=== PATIENT | female | born 1970 | race Caucasian/White ===

== ENCOUNTER 2016-07-28 08:26 | Emergency (ER) | payer MEDICAID, OTHER ==
[~2016-07-28] VITALS: Ht 149.9 cm; Wt 68.0 kg
[2016-07-28 08:35] VITALS: BP 123/68
[2016-07-28] MEDS ORDERED: LISI-660 PO (08:46)
[2016-07-28] MEDS ORDERED: ACETAMINOPHEN 325 MG TABLET PO ONE (09:15)
[2016-07-28] MEDS ORDERED: DEXAMETHASONE SOD PHOS 4 MG/ML 5 ML VIAL IM ONE (10:30)
== END 2016-07-28 11:15 | disposition home or self-care (01) ==
LOC: EMS 08:29
DX: J02.9 Acute pharyngitis, unspecified (principal); I10 Essential (primary) hypertension
CPT/HCPCS: 87430; 96372; 99283; J1100

== ENCOUNTER 2020-04-11 13:23 | Emergency (ER) | payer OTHER ==
[~2020-04-11] VITALS: Ht 149.9 cm; Wt 74.1 kg
[~2020-04-11 13:23] MED LIST: LISI-892 PO
[2020-04-11 14:44] LABS: APPEARANCE,URINE CLOUDY (CLEAR); BILIRUBIN,URINE NEGATIVE (NEGATIVE); GLUCOSE, URINE (UA) 100 mg/dL (NEGATIVE); KETONES,URINE NEGATIVE (NEGATIVE); LEUKOCYTE ESTERASE ,URINE SMALL (NEGATIVE); NITRATE,URINE NEGATIVE (NEGATIVE); OCCULT BLOOD,URINE LARGE (NEGATIVE); PROTEIN,URINE TRACE (NEGATIVE); UROBILINOGEN,URINE 0.2 mg/dL (<=1.0)
[2020-04-11 14:45] LABS: RBC,URINE 51-100 /HPF (0-2)
[2020-04-11 14:46] LABS: BACTERIA,URINE Moderate /HPF (None Seen); SQUAMOUS EPITHELIAL CELL,UR Moderate /LPF (None Seen)
[2020-04-11 15:19] LABS: BASOPHILS % (AUTO) 0.3 % (0.0-2.0); EOSINOPHILS % (AUTO) 0.6 % (1.0-6.0); HEMATOCRIT 41.4 % (36-46); LYMPHOCYTES # (AUTO) 0.9 K/uL (1.0-4.8); LYMPHOCYTES % (AUTO) 12.1 % (22.0-44.0); MEAN CORPUSCULAR HEMOGLOBIN 31.5 pg (26.0-34.0); MEAN CORPUSCULAR HGB CONC 33.9 G/dL (31.0-37.0); MEAN CORPUSCULAR VOLUME 93 fL (80-100); MONOCYTES # (AUTO) 0.4 K/uL (0.1-1.0); MONOCYTES % (AUTO) 5.9 % (2.0-9.0); NEUTROPHILS # (AUTO) 6.1 K/uL (1.8-7.7); NEUTROPHILS % (AUTO) 81.1 % (40.0-70.0); PLATELET COUNT (AUTO) 179 K/uL (150-450); RED BLOOD CELL COUNT(AUTO) 4.46 MIL/uL (4.00-5.20); RED CELL DISTRIBUTION WIDTH 12.6 % (11.5-14.5)
[2020-04-11 15:25] LABS: CALCIUM, TOTAL 9.4 mg/dL (8.8-10.5); CREATININE 1.05 mg/dL (0.60-1.30); POTASSIUM 3.6 mmol/L (3.5-5.1)
[2020-04-11 15:31] LABS: ALBUMIN 3.8 g/dL (3.4-5.0); BILIRUBIN,TOTAL 0.3 mg/dL (0.1-1.0); TOTAL PROTEIN, SERUM 7.6 g/dL (6.4-8.2)
[2020-04-11] MEDS ORDERED: KETOROLAC TROMETHAMINE 30 MG/ML VIAL IVP ONE (17:00)
[2020-04-11] MEDS ORDERED: SULFAMETHOX/TRIMETH DS 800-160 MG/TABLET PO ONE (17:00)
[2020-04-11] MEDS ORDERED: TAMSULOSIN HCL 0.4 MG CAPSULE PO ONE (17:00)
[2020-04-11] MEDS ORDERED: PHENAZOPYRIDINE HCL 100 MG TABLET PO ONE (17:00)
[2020-04-11] MEDS ORDERED: SODIUM CHLORIDE 0.9% 1,000 ML IV ONE (17:00)
[2020-04-11 18:16] VITALS: BP 129/76
== END 2020-04-11 18:57 | disposition home or self-care (01) ==
LOC: EMS 13:23
DX: N20.1 Calculus of ureter (principal); I10 Essential (primary) hypertension; Z79.899 Other long term (current) drug therapy
CPT/HCPCS: 36415; 74176; 80053; 81001; 84702; 85025; 87077; 87086; 96361; 96374; 99284; J1885; J7030

== ENCOUNTER 2020-04-13 19:40 | Emergency (ER) | payer OTHER ==
[~2020-04-13] VITALS: Ht 149.9 cm; Wt 75.0 kg
[2020-04-13] MEDS ORDERED: ONDANSETRON HCL 4 MG/2 ML VIAL IVP ONE (20:00)
[2020-04-13] MEDS ORDERED: SODIUM CHLORIDE 0.9% 1,000 ML IV ONE ×2 (20:00→21:00)
[2020-04-13] MEDS ORDERED: ACETAMINOPHEN 325 MG TABLET PO ONE (20:00)
[2020-04-13] MEDS ORDERED: KETOROLAC TROMETHAMINE 30 MG/ML VIAL IVP ONE (20:00)
[2020-04-13 20:22] LABS: COVID AG,FIA SOURCE NASOPHARYNGEAL
[2020-04-13 20:25] LABS: BASOPHILS % (AUTO) 0.2 % (0.0-2.0); EOSINOPHILS % (AUTO) 0 % (1.0-6.0); HEMATOCRIT 37.9 % (36-46); LYMPHOCYTES # (AUTO) 0.3 K/uL (1.0-4.8); LYMPHOCYTES % (AUTO) 2.6 % (22.0-44.0); MEAN CORPUSCULAR HEMOGLOBIN 31.7 pg (26.0-34.0); MEAN CORPUSCULAR HGB CONC 34.3 G/dL (31.0-37.0); MEAN CORPUSCULAR VOLUME 93 fL (80-100); MONOCYTES # (AUTO) 0.8 K/uL (0.1-1.0); MONOCYTES % (AUTO) 7.3 % (2.0-9.0); NEUTROPHILS # (AUTO) 9.7 K/uL (1.8-7.7); PLATELET COUNT (AUTO) 142 K/uL (150-450); RED BLOOD CELL COUNT(AUTO) 4.09 MIL/uL (4.00-5.20); RED CELL DISTRIBUTION WIDTH 12.7 % (11.5-14.5)
[2020-04-13 20:29] LABS: NEUTROPHILS % (AUTO) 89.9 % (40.0-70.0)
[2020-04-13 20:32] LABS: APPEARANCE,URINE CLOUDY (CLEAR); BILIRUBIN,URINE NEGATIVE (NEGATIVE); GLUCOSE, URINE (UA) NEGATIVE (NEGATIVE); KETONES,URINE NEGATIVE (NEGATIVE); LEUKOCYTE ESTERASE ,URINE SMALL (NEGATIVE); NITRATE,URINE NEGATIVE (NEGATIVE); OCCULT BLOOD,URINE LARGE (NEGATIVE); PH,URINE 5.5 (5.0-8.0); PROTEIN,URINE POS 1+ (NEGATIVE)
[2020-04-13 20:34] LABS: CALCIUM, TOTAL 9.4 mg/dL (8.8-10.5); CREATININE 1.78 mg/dL (0.60-1.30); POTASSIUM 3.1 mmol/L (3.5-5.1)
[2020-04-13 20:45] LABS: BACTERIA,URINE Few /HPF (None Seen)
[2020-04-13 20:46] LABS: SQUAMOUS EPITHELIAL CELL,UR Moderate /LPF (None Seen)
[2020-04-13 20:46] LABS: ALBUMIN 3.6 g/dL (3.4-5.0); BILIRUBIN,TOTAL 1.2 mg/dL (0.1-1.0); TOTAL PROTEIN, SERUM 7.8 g/dL (6.4-8.2)
[2020-04-13] MEDS ORDERED: POTASSIUM CHLORIDE 20 MEQ ER TABLET PO ONE (21:15)
[2020-04-13] MEDS ORDERED: CefTRIAXone 1 GM/DEXTROSE 50 ML IV ONE (21:45)
[2020-04-13 22:02] VITALS: BP 140/68
[2020-04-15] MEDS ORDERED: AMOX1TAB16 PO (15:59)
[2020-04-15] MEDS ORDERED: AMLO-258 PO (15:59)
[2020-04-15] MEDS ORDERED: TAMS-13 PO (15:59)
== END 2020-04-13 22:21 | disposition home or self-care (01) ==
LOC: EMS 19:49
DX: N13.2 Hydronephrosis with renal and ureteral calculous obstruction (principal); R94.4 Abnormal results of kidney function studies; I10 Essential (primary) hypertension; Z20.822 Contact with and (suspected) exposure to COVID-19; Z79.899 Other long term (current) drug therapy
CPT/HCPCS: 36415; 74176; 80053; 81001; 83605; 83690; 84702; 85025; 87040; 87086; 87205; 87426; 96361; 96365; 96375; 99284; J1885; J2405; J7030; U0003

== ENCOUNTER 2020-04-29 10:13 | Emergency (ER) | payer OTHER ==
[~2020-04-29] VITALS: Ht 157.5 cm; Wt 72.7 kg
[~2020-04-29 10:13] MED LIST changes: +AMLO-258 PO; +AMOX1TAB16 PO; -LISI-892 PO; +TAMS-13 PO
[2020-04-29 11:32] LABS: BASOPHILS % (AUTO) 0.5 % (0.0-2.0); EOSINOPHILS % (AUTO) 1.2 % (1.0-6.0); HEMATOCRIT 40.4 % (36-46); HEMOGLOBIN 13.5 g/dL (12.0-16.0); LYMPHOCYTES # (AUTO) 1.2 K/uL (1.0-4.8); LYMPHOCYTES % (AUTO) 15.4 % (22.0-44.0); MEAN CORPUSCULAR HEMOGLOBIN 31.2 pg (26.0-34.0); MEAN CORPUSCULAR HGB CONC 33.5 G/dL (31.0-37.0); MEAN CORPUSCULAR VOLUME 93 fL (80-100); MONOCYTES # (AUTO) 0.5 K/uL (0.1-1.0); MONOCYTES % (AUTO) 6.9 % (2.0-9.0); PLATELET COUNT (AUTO) 273 K/uL (150-450); RED BLOOD CELL COUNT(AUTO) 4.34 MIL/uL (4.00-5.20); RED CELL DISTRIBUTION WIDTH 12.9 % (11.5-14.5)
[2020-04-29 11:42] LABS: APPEARANCE,URINE CLOUDY (CLEAR); BILIRUBIN,URINE NEGATIVE (NEGATIVE); GLUCOSE, URINE (UA) NEGATIVE (NEGATIVE); KETONES,URINE NEGATIVE (NEGATIVE); LEUKOCYTE ESTERASE ,URINE MODERATE (NEGATIVE); NITRATE,URINE POSITIVE (NEGATIVE); OCCULT BLOOD,URINE LARGE (NEGATIVE); PROTEIN,URINE SEE CONFIRM (NEGATIVE); UROBILINOGEN,URINE 0.2 mg/dL (<=1.0)
[2020-04-29 11:42] LABS: CALCIUM, TOTAL 9.2 mg/dL (8.8-10.5); CREATININE 1.06 mg/dL (0.60-1.30); POTASSIUM 3.3 mmol/L (3.5-5.1)
[2020-04-29 11:49] LABS: SULFOSALICYLIC ACID,URINE 3+ (Negative)
[2020-04-29 11:50] LABS: BACTERIA,URINE Few /HPF (None Seen); CALCIUM OXALATE CRYSTALS,UR Rare /LPF (None Seen); RBC,URINE 51-100 /HPF (0-2); SQUAMOUS EPITHELIAL CELL,UR Few /LPF (None Seen); WBC,URINE 51-100 /HPF (0-5)
[2020-04-29 11:53] LABS: ALBUMIN 3.7 g/dL (3.4-5.0); BILIRUBIN,TOTAL 0.3 mg/dL (0.1-1.0); TOTAL PROTEIN, SERUM 7.8 g/dL (6.4-8.2)
[2020-04-29 12:20] VITALS: BP 127/75
== END 2020-04-29 12:53 | disposition home or self-care (01) ==
LOC: EMS 10:24
DX: N39.0 Urinary tract infection, site not specified (principal); I10 Essential (primary) hypertension; Z96.0 Presence of urogenital implants; Z90.5 Acquired absence of kidney
CPT/HCPCS: 87086; 99283

== ENCOUNTER 2020-11-30 12:41 | Emergency (ER) | payer OTHER ==
[~2020-11-30] VITALS: Ht 149.9 cm; Wt 75.0 kg
[2020-11-30] MEDS ORDERED: CHOL200016 PO (12:48)
[2020-11-30] MEDS ORDERED: LOSA50TA37 PO (12:48)
[2020-11-30] MEDS ORDERED: ACETAMINOPHEN 500 MG TABLET PO ONE (13:15)
[2020-11-30] MEDS ORDERED: CloNIDine HCL 0.2 MG TABLET PO ONE (13:30)
[2020-11-30] MEDS ORDERED: IBUPROFEN 600 MG TABLET PO ONE (13:30)
[2020-11-30 14:12] LABS: BASOPHILS % (AUTO) 1.1 % (0.0-2.0); EOSINOPHILS % (AUTO) 1.9 % (1.0-6.0); HEMATOCRIT 42.8 % (36-46); HEMOGLOBIN 14.1 g/dL (12.0-16.0); LYMPHOCYTES # (AUTO) 1.1 K/uL (1.0-4.8); LYMPHOCYTES % (AUTO) 24.5 % (22.0-44.0); MEAN CORPUSCULAR HEMOGLOBIN 30.4 pg (26.0-34.0); MEAN CORPUSCULAR VOLUME 92 fL (80-100); MONOCYTES # (AUTO) 0.6 K/uL (0.1-1.0); MONOCYTES % (AUTO) 14.8 % (2.0-9.0); NEUTROPHILS # (AUTO) 2.5 K/uL (1.8-7.7); NEUTROPHILS % (AUTO) 57.7 % (40.0-70.0); PLATELET COUNT (AUTO) 162 K/uL (150-450); RED BLOOD CELL COUNT(AUTO) 4.66 MIL/uL (4.00-5.20); RED CELL DISTRIBUTION WIDTH 13.5 % (11.5-14.5)
[2020-11-30 14:17] LABS: APPEARANCE,URINE CLEAR (CLEAR); BILIRUBIN,URINE NEGATIVE (NEGATIVE); GLUCOSE, URINE (UA) NEGATIVE (NEGATIVE); KETONES,URINE NEGATIVE (NEGATIVE); LEUKOCYTE ESTERASE ,URINE NEGATIVE (NEGATIVE); NITRATE,URINE NEGATIVE (NEGATIVE); OCCULT BLOOD,URINE TRACE (NEGATIVE); PH,URINE 6.5 (5.0-8.0); PROTEIN,URINE NEGATIVE (NEGATIVE); UROBILINOGEN,URINE 0.2 mg/dL (<=1.0)
[2020-11-30 14:20] LABS: COVID AG,FIA SOURCE NASOPHARYNGEAL
[2020-11-30 14:28] LABS: CALCIUM, TOTAL 8.8 mg/dL (8.8-10.5); CREATININE 1.08 mg/dL (0.60-1.30); POTASSIUM 3.6 mmol/L (3.5-5.1)
[2020-11-30 14:32] LABS: BACTERIA,URINE None Seen /HPF (None Seen); RBC,URINE None Seen /HPF (0-2); SQUAMOUS EPITHELIAL CELL,UR Few /LPF (None Seen); WBC,URINE None Seen /HPF (0-5)
[2020-11-30 14:40] VITALS: BP 134/74
== END 2020-11-30 16:17 | disposition home or self-care (01) ==
LOC: EMS 12:41
DX: I10 Essential (primary) hypertension (principal); Z20.822 Contact with and (suspected) exposure to COVID-19
CPT/HCPCS: 36415; 80048; 81001; 85025; 87426; 93005; 99284; U0003

== ENCOUNTER 2021-12-03 19:23 | Emergency (ER) | payer OTHER ==
[~2021-12-03] VITALS: Ht 149.9 cm; Wt 77.3 kg
[~2021-12-03 19:23] MED LIST changes: -AMLO-258 PO; -AMOX1TAB16 PO; +CHOL200059 PO; +LOSA-382 PO; -TAMS-13 PO
[2021-12-03 19:34] VITALS: BP 191/101
[2021-12-03] MEDS ORDERED: ACETAMINOPHEN 500 MG TABLET PO ONE (22:45)
[2021-12-03] MEDS ORDERED: PredniSONE 20 MG TABLET PO ONE (23:15)
[2021-12-03] MEDS ORDERED: CEPH-558 PO (23:22)
== END 2021-12-04 03:02 | disposition home or self-care (01) ==
LOC: EMS 19:23
DX: S60.460A Insect bite (nonvenomous) of right index finger, initial encounter (principal); I10 Essential (primary) hypertension; W57.XXXA Bitten or stung by nonvenomous insect and other nonvenomous arthropods, initial encounter; Y93.89 Activity, other specified; Y92.89 Other specified places as the place of occurrence of the external cause; Y99.8 Other external cause status; Z87.442 Personal history of urinary calculi
CPT/HCPCS: 99283; 73130; J7512